=== PATIENT | female | born 1985 | race Two or more races ===

== ENCOUNTER 2019-05-03 18:38 | Emergency (ER) | payer SELFPAY ==
[~2019-05-03] VITALS: Ht 170.2 cm; Wt 68.9 kg
[2019-05-03 19:03] VITALS: BP 138/90
[2019-05-03] MEDS ORDERED: ONDANSETRON ODT 4 MG TAB.RAPDIS. PO ONE (19:15)
[2019-05-03] MEDS ORDERED: HYDROcodone/APAP 10/325 1 TAB TABLET PO ONE (19:15)
[2019-05-03] MEDS ORDERED: HYDROmorphone 2 MG/ML VIAL IM ONE ×2 (20:15→21:30)
--- NOTE | 2019-05-03 20:17 | RAD ---
Right humerus 2 views 05/03/2019. Reason for exam: Fell while ice skating. Is a transverse fracture of the midhumerus with slight comminution. The distal fragment is slightly displaced medially. There is no significant override. No other fracture or dislocation is seen. IMPRESSION: Mid humerus fracture. Right elbow 3 views: There appears to be a fracture through the base of the coronoid process of the ulna with minimal displacement. There is a small joint effusion. No other fracture or dislocation is seen. IMPRESSION: Proximal ulna fracture. Electronically signed by: Antonio Escobedo Jr., MD (05/03/2019 8:15 PM) [id number]
[2019-05-03] MEDS ORDERED: OXYC-325 PO (20:45)
--- NOTE | 2019-05-03 20:45 | PHYS DOC ---
Past Medical History Past Medical History: No Pertinent History (BHUPENDRA GILLESPIE) Past Surgical History: No Surgical History (BHUPENDRA GILLESPIE) Alcohol Use: None Drug Use: None (BHUPENDRA GILLESPIE) Attending Signature I have participated in the care of this patient and I have reviewed and agree with all pertinent clinical information above including history, exam, and recommendations. (GORAN KEE MD) Adult General Chief Complaint Chief Complaint: ELBOW PROBLEM HPI HPI Patient is a 33 year old F who was with her kids at the [employer] and states she stepped out to take a picture and slipped and fell landing hard on her R arm. She is in significant pain on arrival to ER and points to R upper arm and elbow. She reports she did hit her head but denies LOC or N/V. She is alert, oriented and ambulatory in ER. She denies neck or back pain. (BHUPENDRA GILLESPIE) Review of Systems Review of Systems Constitutional: Denies fever or chills [] Eyes: Denies change in visual acuity, redness, or eye pain [] HENT: Denies nasal congestion or sore throat [] Respiratory: Denies cough or shortness of breath [] Cardiovascular: No additional information not addressed in HPI [] GI: Denies abdominal pain, nausea, vomiting, bloody stools or diarrhea [] : Denies dysuria or hematuria [] Musculoskeletal: Reports R arm pain Integument: Denies rash or skin lesions [] Neurologic: Denies headache, focal weakness or sensory changes [] All other systems were reviewed and found to be within normal limits, except as documented in this note. (BHUPENDRA GILLESPIE) Current Medications Current Medications Current Medications Medications (Trade) Dose Ordered Sig/Rosalio Start Time Stop Time Status Last Admin Dose Admin Acetaminophen/ Hydrocodone Bitart (Lortab 10/325) 1 tab 1X ONCE 05/03/19 19:15 05/03/19 19:22 DC 05/03/19 19:25 1 TAB Hydromorphone HCl (Dilaudid) 0.5 mg 1X ONCE 05/03/19 21:30 05/03/19 21:31 DC 05/03/19 21:23 0.5 MG Ondansetron HCl (Zofran Odt) 4 mg 1X ONCE 05/03/19 19:15 05/03/19 19:22 DC 05/03/19 19:25 4 MG (GORAN KEE MD) Allergies Allergies Allergies Coded Allergies Type Severity Reaction Last Updated Verified No Known Drug Allergies 05/03/19 No (GORAN KEE MD) Physical Exam Physical Exam Constitutional: Well developed, well nourished. Uncomfortable, tearful and in pain. HENT: Normocephalic, atraumatic, bilateral external ears normal, oropharynx moist, no oral exudates, nose normal. No palpable edema or tenderness along scalp. Skin intact. No erythema or contusion. Eyes: PERRLA, EOMI, conjunctiva normal, no discharge. [] Neck: Normal range of motion, no tenderness, supple, no stridor. [] Cardiovascular:Heart rate regular rhythm, no murmur [] Lungs & Thorax: Bilateral breath sounds clear to auscultation [] Abdomen: Bowel sounds normal, soft, no tenderness, no masses, no pulsatile masses. [] Skin: Warm, dry, no erythema, no rash. [] Back: No tenderness, no CVA tenderness. [] Extremities: No pain along collar bone or shoulder. Pain mid humerus down just past elbow. Radial pulse strong, normal cap refill and motor movement of all fingers and thumb. Neurologic: Alert and oriented X 3, normal motor function, normal sensory function, no focal deficits noted. [] Psychologic: Affect normal, judgement normal, mood normal. [] (BHUPENDRA GILLESPIE) Current Patient Data Vital Signs Vital Signs Date Time Temp Pulse Resp B/P (MAP) Pulse Ox O2 Delivery O2 Flow Rate FiO2 05/03/19 21:23 100 05/03/19 19:03 98.0 100 20 138/90 (106) Room Air 98.0 (GORAN KEE MD) EKG EKG [] (BHUPENDRA GILLESPIE) Radiology/Procedures Radiology/Procedures [] (BHUPENDRA GILLESPIE) Course & Med Decision Making Course & Med Decision Making Pertinent Labs and Imaging studies reviewed. (See chart for details) Pt's pain was not controlled with [place] 10/325 so she was given a shot of 1mg Dilaudid, which did help her pain. She was placed in a long arm OCL at angle of comfort and then sling. She was informed of her injury of proximal ulnar fracture as well as mid humerus fracture. I spoke with Dr. Garnica from the ER and informed him of fractures and he agreed with plan and will have pt call his office tomorrow to arrange for f/u. Discussed with pt that this injury may require surgical repair but this will be decided by ortho. Pt again having pain after splint placement so second dose of 0.5mg Dilaudid given and pain much improved. Pt will be discharge with Rx for Percocet and have recommended ice and elevation and strict compartment syndrome precautions. (BHUPENDRA GILLESPIE) Dragon Disclaimer Dragon Disclaimer This electronic medical record was generated, in whole or in part, using a voice recognition dictation system. (BHUPENDRA GILLESPIE) Departure Departure Impression: Primary Impression: Humerus shaft fracture Additional Impression: Fracture, ulna, proximal Disposition: 01 HOME, SELF-CARE Condition: IMPROVED Referrals: NO PCP (PCP) GARRY GARNICA MD Patient Instructions: Compartment Syndrome, Humerus Fracture, Treated with Immobilization, [id number], Ulnar Fracture Additional Instructions: You will need very close follow up with orthopedics. We spoke with ortho, Dr. Garnica, from the ER today and would like you to call their office to schedule follow up for the next 1-2 days. Keep the arm elevated, ice on top of the splint and monitor for symptoms of compartment syndrome. You do not currently have symptoms of compartment syndrome but this can develop. Scripts Oxycodone HCl/Acetaminophen (Percocet 5-325 mg Tablet) 1 Each Tablet 1-2 TAB PO PRN TID PRN for PAIN MDD 3 Tablet(s) for 5 Days, #15 TAB 0 Refills Prov: BHUPENDRA GILLESPIE 05/03/19 Problem Qualifiers BHUPENDRA GILLESPIE May 03, 2019 20:45 GORAN KEE MD May 03, 2019 23:58
== END 2019-05-03 21:25 | disposition home or self-care (01) ==
LOC: ER 18:38
DX: S42.301A Unspecified fracture of shaft of humerus, right arm, initial encounter for closed fracture (principal); S52.041A Displaced fracture of coronoid process of right ulna, initial encounter for closed fracture; Z79.899 Other long term (current) drug therapy; W18.39XA Other fall on same level, initial encounter; Y93.89 Activity, other specified; Y92.89 Other specified places as the place of occurrence of the external cause; Y99.8 Other external cause status
CPT/HCPCS: 29105; 73060; 73080; 96372; 99284; J1170; Q0162